=== PATIENT | female | born 1965 | race Caucasian/White ===

== ENCOUNTER 2016-11-23 14:00 | Emergency (ER) | payer OTHER, MEDICARE ==
[~2016-11-23] VITALS: Ht 167.6 cm; Wt 77.1 kg
[~2016-11-23 14:00] MED LIST: AMITRIPTYLINE H50 MG PO; BACLOFEN20 MG PO; BACTRIM DS 8001 TAB PO; BENTYL20 MG PO; BENZTROPINE1 MG PO; BUSPIRONE HCL30 MG PO; BUTALBITAL PO; COLACE100 MG PO; CYCLOBENZAPRINE10 M3 PO; DILAUDID2 MG PO; DILTIAZEM HCL30 MG PO; FIORICET 325 MG1 TAB PO; FLU VACCINE 0.0.5 ML IM; FOLIC ACID0.8 MG PO; HYDROXYZINE HCL50 MG PO; HYDROXYZINE PA100 MG PO; KETOROLAC TROME10 M1 PO; LAMOTRIGINE200 MG PO; LIORESAL 10MG T10 MG PO; MASON NATURAL325 MG PO; MEDROL DOSEPAK1 PA1 PO; MEDROL DOSEPAK1 PAC PO; MODAFINIL200 MG PO; MONTELUKAST SOD10 MG PO; NATURE'S BLEND100 M3 PO; OXYCODONE AND A PO; PERCOCET 325 MG1 TA3 PO; PHENERGAN25 M1 PO; REGLAN10 MG PO; RISPERIDONE3 MG PO; SAVELLA100 MG PO; SUMATRIPTAN SU100 MG PO; SYNTHROID0.075 MG PO; TOPIRAMATE50 MG PO; TORADOL10 MG PO; VENTOLIN H0.09 MG/Ac PO; VITAMIN D50000 IU PO; ZOFRAN4 M1 SL; ZOFRAN4 M2 SL; ZOFRAN4 MG PO; [UNRECOGNIZED DRUG - OTHER] PO
--- NOTE | 2016-11-23 16:55 | ED GENERAL ADULT ---
History of Present Illness General Chief Complaint: Skin Rash/ Abcess Stated Complaint: BOIL ON BACK OF NECK Source: patient Exam Limitations: no limitations Vital Signs & Intake/Output Vital Signs & Intake/Output Vital Signs Date Time Temp Pulse Resp B/P B/P Pulse O2 O2 Flow FiO2 Mean Ox Delivery Rate 11/23 1827 98.3 80 16 144/80 98 Room Air Room Air 11/23 1656 99.0 97 18 145/78 96 Room Air 11/23 1411 98.5 102 20 138/81 94 Room Air Allergies Coded Allergies: Penicillins (Intermediate, HIVES 11/04/15) alcohol (Intermediate, HIVES AND GI UPSET 11/04/15) aspirin (Intermediate, GI UPSET 11/04/15) cefaclor (From CECLOR) (Intermediate, HIVES 11/04/15) pepper (Intermediate, SWELLING 11/04/15) Uncoded Allergies: COCKROACH ( PER ALLERGY TESTING 04/15/15) DUST AND DUST MITES (UNKNOWN 07/22/15) Triage Note: PT TO ED C/O "BOIL ON THE BACK OF MY NECK". NOTICED ON MONDAY. PT DID SEE PCP DR ROMERO. WAS SUPPOSED TO GO BACK TODAY, BUT PT STATES IT IS BIGGER AND MORE PAINFUL. PT HAS INSTRUCTIONS FROM HER DOCTOR WITH HER. Triage Nurses Notes Reviewed? yes Onset: Gradual Duration: day(s): (5) Timing: no prior history Injury Environment: home Severity: moderate Severity Numbers: 8 No Modifying Factors: none HPI: Patient is a 51-year-old female presenting to the emergency department with chief complaint of mild to the posterior aspect the scalp has been going on for the past 5 days. She reports it's getting larger and more painful. She saw her primary care physician on the first day started and she was put on oral Levaquin. She followed up with her primary care physician 2 days ago for a recheck and was prescribed bacitracin P she called back today could symptoms are worsening. The primary care physician told her to come to the emergency department to get her cyst drained. Pain is moderate to severe achy and throbbing located over the site of the cyst. Denies any active drainage. No history of similar symptoms. Denies any nausea or vomiting fevers or chills chest pain or shortness of breath. Palpation makes it worse. Nothing makes it better. (BRANDO CLARK) Reconcile Medications Acetaminophen/Butalbital/Caf (Fioricet 325 MG-50 MG-40 MG) 1 TAB TAB 1 TAB PO PRN MIGRAINES (Reported) Albuterol Sulfate (Ventolin Hfa) 90 MCG HFA.AER.AD 2 PUFF PO Q4 HRS NEEDED PRN ASTHMA (Reported) AMITRIPTYLINE HCL (Amitriptyline HCl) 50 MG TABLET 150 MG PO QPM MIGRAINES ( Reported) Baclofen (Lioresal) 10 MG TAB 1 TAB PO 4 TIMES/DAY MUSCLE RELAXER - DJD ( Reported) CYCLOBENZAPRINE HCL (Cyclobenzaprine Hydrochloride) 10 MG TABLET 1 TAB PO Q8P PRN MUSCLE SPASMS (Reported) Dicyclomine Hydrochloride (Bentyl) 20 MG TAB 1 TAB PO Q8P PRN SPASMS DILTIAZEM HCL (Diltiazem HCl) 30 MG TABLET 1 TAB PO BID HEART (Reported) Docusate Sodium (Colace) 100 MG SGL 4 CAP PO BID STOOL SOFTENER (Reported) Ferrous Sulfate 325 MG TAB 1 TAB PO TID SUPPLEMENT (Reported) Folic Acid 0.8 MG TAB 1 TAB PO DAILY SUPPLEMENT (Reported) Hydroxyzine Hydrochloride (Hydroxyzine HCl) 50 MG TAB INSOMNIA (Reported) Ketorolac Tromethamine (Toradol) 10 MG TAB 1 TAB PO TID HEADACHE Ketorolac Tromethamine 10 MG TABLET 1 TAB PO Q6P PRN HEADACHE Lamotrigine 200 MG TABLET 2 TAB PO DAILY BIPOLAR (Reported) Levothyroxine Sodium (Synthroid) 0.075 MG TAB 1 TAB PO DAILY AC THYROID ( Reported) METOCLOPRAMIDE HCL (Reglan) 10 MG TAB 1 TAB PO TID NAUSEA MILNACIPRAN HCL (Savella) 100 MG TABLET 1 TAB PO BID FIBROMYALGIA (Reported) Modafinil 200 MG TAB 1 TAB PO DAILY HELP TO KEEP AWAKE (Reported) Montelukast Sodium 10 MG TABLET 1 TAB PO QPM ALLERGIES (Reported) Ondansetron HCl (Zofran) 4 MG TABLET 1 TAB SL Q4-6 PRN NAUSEA Ondansetron Hydrochloride (Zofran) 4 MG TAB 1 TAB PO Q6P PRN NAUSEA OXYCODONE HCL/ACETAMINOPHEN (Percocet 7.5-325 MG Tablet) 325 MG/7.5 MG TAB 1 TAB PO 4 TIMES/DAY PAIN (Reported) Risperidone 3 MG TABLET 1 TAB PO QPM BIPOLAR (Reported) Sulfamethoxazole/Trimethoprim (Bactrim Ds Tablet) 800 MG-160 MG TABLET 1 TAB PO BID ABSCESS Sumatriptan Succinate 100 MG TABLET 1 TAB PO AD PRN MIGRAINES (Reported) may repeat in 2 hours; do not exceed 200 mg in 24 hours THIAMINE HCL (Vitamin B-1) 100 MG TAB 1 TAB PO DAILY SUPPLEMENT (Reported) Topiramate 50 MG TABLET 1 TAB PO BID HEADACHE (Reported) (MIL ROBERTS,ASHISH) Past History Travel History Traveled to [place] past 21 day No Medical History Any Pertinent Medical History? see below for history Neurological: migraine EENT: NONE Cardiovascular: NONE Respiratory: asthma Gastrointestinal: NONE Hepatic: cholelithiasis Renal: NONE Musculoskeletal: fibromyalgia, DDD Psychiatric: bipolar disease Endocrine: diabetes Blood Disorders: NONE Cancer(s): NONE AUDIOLOGY DOCTOR/Reproductive: NONE History of MRSA: No History of VRE: No History of CDIFF: No Surgical History Surgical History: cholecystectomy, GASTRIC BYPASS ABDOMINAL HERNIA TONSILS Psychosocial History Who do you live with Spouse What is your primary language Spanish Tobacco Use: Never used ETOH Use: denies use Illicit Drug Use: denies illicit drug use Family History Family History, If Any: MOTHER FH: diabetes mellitus Hx Contributory? No (BRANDO CLARK) Review of Systems Review of Systems Constitutional: Reports: no symptoms. Comments Review of systems: See HPI, All other systems negative. Constitutional, no chills fever or weight loss HEENT: No visual changes no sore throat no congestion Cardiovascular: No chest pain Skin, no jaundice Respiratory: No dyspnea cough sputum or hemoptysis GI: No nausea no vomiting Muscle skeletal: no back pain, no neck pain, Neurologic: No numbness no confusion Psych: No stress anxiety or depression,. Heme/endocrine: No bruising no bleeding Immunology: No splenectomy or history of AIDS (BRANDO CLARK) Physical Exam Physical Exam General Appearance: well developed/nourished, no apparent distress, alert, awake , comfortable Comments: Well-developed well-nourished person in no acute distress HEENT: Pupils equally round and reactive to light and accommodation. Nose is atraumatic. Neck: Supple, no lymphadenopathy, normal range of motion without pain or tenderness, no bony tenderness to palpation. Back: Nontender Cardiovascular: Regular rate and rhythms no murmurs rubs or gallops, normal JVP Respiratory: Chest nontender. No respiratory distress.breath sounds clear to auscultation bilaterally Extremity: No edema Neuro: Alert oriented x3, motor sensory normal Skin: Large fluctuant raised erythematous lesion noted on the left occipital region at the base of the hairline, small superficial scabbing approximately 1 cm noted in the central aspect of the fluctuant lesion. Tender to palpation. Psych: Mood and affect is normal, memory and judgment is normal. Core Measures ACS in differential dx? No CVA/TIA Diagnosis: No Severe Sepsis Present: No Septic Shock Present: No (BRANDO CLARK) Progress Differential Diagnoses I considered the following diagnoses in my evaluation of the patient: Abscess, cellulitis, folliculitis Plan of Care: Orders Procedure Date/time Status HEAD & NECK CULTURE 11/23 1708 Active Microbiology 11/24 1731 HEAD/NECK: Head/Neck Culture - RECD 11/24 1731 HEAD/NECK: Gram Stain - RECD Initial ED EKG: none (BRANDO CLARK) Departure Departure Time of Disposition: 1758 Disposition: HOME OR SELF CARE Condition: Stable Clinical Impression Primary Impression: Abscess Referrals: MARICARMEN ROMERO MD (PCP/Family) Additional Instructions: Return to the emergency department 2 days for wound check. Take home pain medication as prescribed. Leave packing in until he return in 2 days or if he follow-up with her primary care physician. Continue taking Levaquin. Start Taking Bactrim. Departure Forms: Customer Survey General Discharge Information Prescriptions: Current Visit Scripts Sulfamethoxazole/Trimethoprim (Bactrim Ds Tablet) 1 TAB PO BID #14 TAB (BRANDO CLARK) PA/CQ DEVELOPER Co-Sign Statement Statement: ED Attending supervision documentation- [] I saw and evaluated the patient. I have also reviewed all the pertinent lab results and diagnostic results. I agree with the findings and the plan of care as documented in the PA's/CQ DEVELOPER's documentation. [X] I have reviewed the ED Record and agree with the PA's/CQ DEVELOPER's documentation. [] Additions or exceptions (if any) to the PAs/CQ DEVELOPER's note and plan are summarized below: [] (MIL ROBERTS,ASHISH) Procedures Incision and Drainage Site: POSTERIOR SCALP Blade Size: 11 I & D Procedure: Yes: betadine prep, sterile drapes applied, sterile dressing applied, wick placed. Progress: Moderate amount of purulent discharge expelled. Culture sent. Patient tolerated procedure well. (HEATHER MCGEE,BRANDO) Critical Care Note Critical Care Note Critical Care Time: non-applicable (BRANDO CLARK)
[2016-11-23] MEDS ORDERED: BACTRIM DS TAB1 EACH PO (18:01)
[2016-11-23 18:27] VITALS: BP 144/80
== END 2016-11-23 18:27 ==
LOC: ERH 14:00
DX: L02.11 Cutaneous abscess of neck (principal)
CPT/HCPCS: 87184; 87070; 87147; 96372; J1885

== ENCOUNTER 2016-11-25 09:32 | Emergency (ER) | payer OTHER, MEDICARE ==
[~2016-11-25] VITALS: Ht 167.6 cm; Wt 77.1 kg
[~2016-11-25 09:32] MED LIST changes: +BACTRIM DS TAB1 EACH PO
--- NOTE | 2016-11-25 11:10 | ED ANIMAL BITE/WOUND CHECK ---
History of Present Illness General Chief Complaint: General Adult Stated Complaint: WOUND CHECK Source: patient, old records Exam Limitations: no limitations Vital Signs & Intake/Output Vital Signs & Intake/Output Vital Signs Date Time Temp Pulse Resp B/P B/P Pulse O2 O2 Flow FiO2 Mean Ox Delivery Rate 11/25 1140 97.7 85 18 141/85 96 Room Air 11/25 1120 Room Air 11/25 0941 95.8 102 16 137/81 98 Room Air Allergies Coded Allergies: Penicillins (Intermediate, HIVES 11/04/15) alcohol (Intermediate, HIVES AND GI UPSET 11/04/15) aspirin (Intermediate, GI UPSET 11/04/15) cefaclor (From CECLOR) (Intermediate, HIVES 11/04/15) pepper (Intermediate, SWELLING 11/04/15) Uncoded Allergies: COCKROACH ( PER ALLERGY TESTING 04/15/15) DUST AND DUST MITES (UNKNOWN 07/22/15) Reconcile Medications Acetaminophen/Butalbital/Caf (Fioricet 325 MG-50 MG-40 MG) 1 TAB TAB 1 TAB PO PRN MIGRAINES (Reported) Albuterol Sulfate (Ventolin Hfa) 90 MCG HFA.AER.AD 2 PUFF PO Q4 HRS NEEDED PRN ASTHMA (Reported) AMITRIPTYLINE HCL (Amitriptyline HCl) 50 MG TABLET 150 MG PO QPM MIGRAINES ( Reported) Baclofen (Lioresal) 10 MG TAB 1 TAB PO 4 TIMES/DAY MUSCLE RELAXER - DJD ( Reported) CYCLOBENZAPRINE HCL (Cyclobenzaprine Hydrochloride) 10 MG TABLET 1 TAB PO Q8P PRN MUSCLE SPASMS (Reported) Dicyclomine Hydrochloride (Bentyl) 20 MG TAB 1 TAB PO Q8P PRN SPASMS DILTIAZEM HCL (Diltiazem HCl) 30 MG TABLET 1 TAB PO BID HEART (Reported) Docusate Sodium (Colace) 100 MG SGL 4 CAP PO BID STOOL SOFTENER (Reported) Ferrous Sulfate 325 MG TAB 1 TAB PO TID SUPPLEMENT (Reported) Folic Acid 0.8 MG TAB 1 TAB PO DAILY SUPPLEMENT (Reported) Hydroxyzine Hydrochloride (Hydroxyzine HCl) 50 MG TAB INSOMNIA (Reported) Ketorolac Tromethamine (Toradol) 10 MG TAB 1 TAB PO TID HEADACHE Ketorolac Tromethamine 10 MG TABLET 1 TAB PO Q6P PRN HEADACHE Lamotrigine 200 MG TABLET 2 TAB PO DAILY BIPOLAR (Reported) Levothyroxine Sodium (Synthroid) 0.075 MG TAB 1 TAB PO DAILY AC THYROID ( Reported) METOCLOPRAMIDE HCL (Reglan) 10 MG TAB 1 TAB PO TID NAUSEA MILNACIPRAN HCL (Savella) 100 MG TABLET 1 TAB PO BID FIBROMYALGIA (Reported) Modafinil 200 MG TAB 1 TAB PO DAILY HELP TO KEEP AWAKE (Reported) Montelukast Sodium 10 MG TABLET 1 TAB PO QPM ALLERGIES (Reported) Ondansetron HCl (Zofran) 4 MG TABLET 1 TAB SL Q4-6 PRN NAUSEA Ondansetron Hydrochloride (Zofran) 4 MG TAB 1 TAB PO Q6P PRN NAUSEA OXYCODONE HCL/ACETAMINOPHEN (Percocet 7.5-325 MG Tablet) 325 MG/7.5 MG TAB 1 TAB PO 4 TIMES/DAY PAIN (Reported) Risperidone 3 MG TABLET 1 TAB PO QPM BIPOLAR (Reported) Sulfamethoxazole/Trimethoprim (Bactrim Ds Tablet) 800 MG-160 MG TABLET 1 TAB PO BID ABSCESS Sumatriptan Succinate 100 MG TABLET 1 TAB PO AD PRN MIGRAINES (Reported) may repeat in 2 hours; do not exceed 200 mg in 24 hours THIAMINE HCL (Vitamin B-1) 100 MG TAB 1 TAB PO DAILY SUPPLEMENT (Reported) Topiramate 50 MG TABLET 1 TAB PO BID HEADACHE (Reported) Triage Note: 51 Y/O FEMALE RETURNS FOR WOUND CHECK TO BASE OF NECK. PT STATES AREA WAS DRAINED MONDAY BUT "I FEEL LIKE THERES MORE TO DRAIN". DRESSING IN PLACE. PT TOOK PERCOCET THIS AM WITH NO RELIEF OF PAIN. ALSO TOOK ANTIBIOTICS PRESCRIBED. Triage Nurses Notes Reviewed? yes Onset: Gradual Duration: better Timing: recent history Severity: mild Severity Numbers: 1 No Modifying Factors: none Modifying Factors: Improves With: rest. Worsens With: movement. HPI: Patient is a 51-year-old female with past medical history migraines who presents to the emergency room with a six-day history of gradual onset of base of the occiput AND neck tender region where she had an incision and drainage performed at [place] emergency room 2 days ago culture per old records showed growth of staph aureus. Patient had been prescribed Levaquin by primary care doctor prior to evaluation in [place] in which patient had a prescription of Bactrim also administered where patient has been compliant with medications. Patient still feels purulent discharge however does have significant improvement of her pain. Denies any systemic symptoms of fevers chills Does have mild headache due to the recent abscess Patient states that she feels better Past History Travel History Traveled to [place] past 21 day No Medical History Any Pertinent Medical History? see below for history Neurological: migraine EENT: NONE Cardiovascular: NONE Respiratory: asthma Gastrointestinal: NONE Hepatic: cholelithiasis Renal: NONE Musculoskeletal: fibromyalgia, DDD Psychiatric: bipolar disease Endocrine: diabetes Blood Disorders: NONE Cancer(s): NONE DIRECTOR PHARMACOLOGY/Reproductive: NONE History of MRSA: No History of VRE: No History of CDIFF: No Surgical History Surgical History: cholecystectomy, GASTRIC BYPASS ABDOMINAL HERNIA TONSILS Psychosocial History Who do you live with Spouse What is your primary language Greenlandic Tobacco Use: Never used Family History Family History, If Any: MOTHER FH: diabetes mellitus Hx Contributory? No Review of Systems Review of Systems Constitutional: Reports: no symptoms. EENTM: Reports: no symptoms. Respiratory: Reports: no symptoms. Cardiovascular: Reports: no symptoms. GI: Reports: no symptoms. Genitourinary: Reports: no symptoms. Musculoskeletal: Reports: no symptoms. Skin: Reports: see HPI. Neurological/Psychological: Reports: no symptoms. Hematologic/Endocrine: Reports: no symptoms. Immunologic/Allergic: Reports: no symptoms. All Other Systems: Reviewed and Negative Physical Exam Physical Exam General Appearance: no apparent distress, alert, comfortable Comments: Well-developed well-nourished no apparent distress. HEENT: Atraumatic, extraocular motion intact Neck: Supple, no lymphadenopathy Back: Nontender Respiratory: No respiratory distress Extremities: No edema, full range of motion Neuro: Alert and oriented x3 Psych: Mood affect normal, normal memory normal judgment. Diagram Head: 1) Noted 1 cm incision with superficial purulent discharge with approximately 2 cm of surrounding erythema and warmth no fluctuance noted Progress Differential Diagnosis: abscess, cellulitis, joint infection, tenosysnovitis Plan of Care: The abscess site was expressed with gentle pressure and which mild purulent discharge was noted. I used a Nancy curved clamps to the incision site in which no significant discharge was resolved. I then used a 60 mL sterile water syringe with Betadine and flushed the region patient tolerated well bandage and tape were applied. Patient was strongly advised to continue antibiotics patient has full active range of motion noted cervical spine. Departure Departure Disposition: HOME OR SELF CARE Condition: Stable Clinical Impression Primary Impression: Abscess Secondary Impressions: Cellulitis, Wound check, abscess Referrals: MARICARMEN ROMERO MD (PCP/Family) Additional Instructions: As discussed continue your previous antibiotics prescribed for the full course. Begin to apply warm compresses to the area and applied bandages to the area as directed. If symptoms worsen return to emergency room. Follow-up with your primary care doctor in 1 week for recheck of symptoms. Departure Forms: Customer Survey General Discharge Information
[2016-11-25 11:40] VITALS: BP 141/85
== END 2016-11-25 11:42 ==
LOC: ERH 09:32
DX: Z48.01 Encounter for change or removal of surgical wound dressing (principal)
CPT/HCPCS: 99281